=== PATIENT | female | born 1950 | race Caucasian/White ===

== ENCOUNTER 2021-08-15 16:10 | Emergency (ER) | payer OTHER ==
[~2021-08-15] VITALS: Ht 157.5 cm; Wt 86.2 kg
[2021-08-15 16:16] VITALS: BP 140/76
--- NOTE | 2021-08-15 16:30 | NUR ---
KASEY SWAB DONE AND IN THE LAB.
--- NOTE | 2021-08-15 16:30 | NUR ---
LAB AT BEDSIDE.
--- NOTE | 2021-08-15 16:49 | NUR ---
71 Y/O F C/O LOWER BACK AND LOWER ABD PAIN 9/10 FOR THE PAST 2 DAYS. HX: KIDNEY DISEASE, GAUT AND HTN NKA
[2021-08-15 16:56] LABS: BILIRUBIN,URINE NEGATIVE (NEGATIVE); BLOOD, URINE 2+ (NEGATIVE); COLOR,URINE YELLOW (YELLOW); LEUKOCYTE ESTERASE ,URINE 3+ (NEGATIVE); NITRITE, URINE POSITIVE (NEGATIVE); UGLUCOSE NEGATIVE (NEGATIVE)
[2021-08-15 16:59] LABS: BASOPHILS % (AUTO) 0.2 % (0.0-2.0); EOSINOPHILS % (AUTO) 0.1 % (0.0-4.0); HEMATOCRIT 40.7 % (36-48); HEMOGLOBIN 13.5 g/dL (12.0-16.0); LYMPHOCYTES # (AUTO) 0.3 K/uL (2.5-16.5); LYMPHOCYTES % (AUTO) 2.8 % (20.5-51.1); MEAN CORPUSCULAR HEMOGLOBIN 31 pg (27-31); MEAN CORPUSCULAR HGB CONC 33 g/dL (33-37); MEAN CORPUSCULAR VOLUME 92.4 fL (80-94); MONOCYTES # (AUTO) 0.6 K/uL (0.8-1.0); MONOCYTES % (AUTO) 5.6 % (1.7-9.3); NEUTROPHILS # (AUTO) 10.4 K/uL (1.8-7.7); NEUTROPHILS % (AUTO) 91.3 % (42.2-75.2); PLATELET COUNT (AUTO) 206 K/uL (140-450); WHITE BLOOD COUNT (AUTO) 11.3 K/uL (4.8-10.8)
[2021-08-15 17:02] LABS: APPEARANCE,URINE CLOUDY (CLEAR)
--- NOTE | 2021-08-15 17:07 | NUR ---
DR GILMORE AT BEDSIDE EVALUATING PT
[2021-08-15 17:08] LABS: RBC,URINE 0-5 /HPF (0-5); WBC,URINE TOO MANY TO COUNT /HPF (0-5)
[2021-08-15 17:16] LABS: ANION GAP 17.4 (8-16); ASPARTATE AMINOTRANSFERASE 15 U/L (15-37); CHLORIDE 101 mmol/L (98-107); CREATININE 1.6 mg/dL (0.6-1.3); GLUCOSE 117 mg/dL (74-106); LIPASE 91 U/L (73-393); POTASSIUM 3.4 mmol/L (3.5-5.1); SODIUM SERUM 140 mmol/L (136-145); TOTAL BILIRUBIN 0.7 mg/dL (0.0-1.0); UREA NITROGEN, BLOOD 19 mg/dL (7-18)
[2021-08-15 17:32] VITALS: BP 153/74
[2021-08-15] MEDS ORDERED: CEPH250C16 PO (17:43)
--- NOTE | 2021-08-15 18:04 | NUR ---
Patient discharged with v/s stable. Written and verbal after care instructions ABOUT URINARY TRACT INFECTION given and explained. Patient alert, oriented and verbalized understanding of instructions. Wheel Chair Assisted with to car. All questions addressed prior to discharge. ID band removed. Patient advised to follow up with PMD. Rx of KEFLEX given. Patient educated on indication of medication including possible reaction and side effects. Opportunity to ask questions provided and answered.
--- NOTE | 2021-08-15 18:05 | NUR ---
The patient's care was reviewed and supervised by Lizet Cartagena RN.
== END 2021-08-15 18:04 | disposition home or self-care (01) ==
LOC: MED 16:10
DX: N39.0 Urinary tract infection, site not specified (principal); Z20.822 Contact with and (suspected) exposure to COVID-19; I25.2 Old myocardial infarction; I10 Essential (primary) hypertension; Z79.2 Long term (current) use of antibiotics
CPT/HCPCS: 36415; 80053; 81001; 83605; 83690; 85025; 87040; 87086; 99283